=== PATIENT | male | born 1990 | race Caucasian/White ===

== ENCOUNTER 2017-02-07 18:34 | Emergency (ER) | payer OTHER ==
[~2017-02-07] VITALS: Ht 170.2 cm; Wt 65.0 kg
[2017-02-07 18:36] VITALS: BP 125/80
[2017-02-07 20:13] LABS: HIV 1&2 ANTIBODY SCREEN Nonreactive (Nonreactive); HIV-1 p24 ANTIGEN Nonreactive (Nonreactive)
[2017-02-08 13:36] LABS: HEP B SURF. AB 60.9 mIU/mL (0.0-10.0)
== END 2017-02-07 20:18 | disposition home or self-care (01) ==
LOC: ED 19:05
DX: S60.413A Abrasion of left middle finger, initial encounter (principal); W46.0XXA Contact with hypodermic needle, initial encounter; Y93.89 Activity, other specified; Y92.89 Other specified places as the place of occurrence of the external cause; Y99.8 Other external cause status
CPT/HCPCS: 36415; 84460; 86703; 86706; 86803; 87899; 99284; G0435

== ENCOUNTER → 2017-02-23 | Outpatient (CLI) | payer OTHER ==
[2017-02-23 17:56] LABS: HEMATOCRIT 41.6 % (39.2-51.8); HEMOGLOBIN 13.8 g/dL (13.7-18.0); WHITE BLOOD COUNT 7.9 x10^3/uL (3.4-10)
[2017-02-23 18:06] LABS: BLOOD UREA NITROGEN 10 mg/dL (7-18)
[2017-02-23 18:33] LABS: ASPARTATE AMINO TRANSFERASE 18 U/L (15-37); TOTAL IRON BINDING CAPACITY 273 mcg/dL (250-450)
== END | disposition home or self-care (01) ==
LOC: LAB 17:15
PROVIDERS: ATTEND Registered Nurse
DX: Z00.8 Encounter for other general examination (principal); R79.89 Other specified abnormal findings of blood chemistry
CPT/HCPCS: 36415; 80053; 80061; 80074; 82248; 82550; 82607; 83540; 83550; 84100; 84402; 84403; 84439; 84443; 85025; 86592; 86695; 86696; 87536

== ENCOUNTER → 2017-10-13 | Outpatient (CLI) | payer OTHER ==
[2017-10-13 12:49] LABS: BASOPHILS # (AUTO) 0.05 x10^3/uL (0-0.1); BASOPHILS % (AUTO) 1 % (0-1); EOSINOPHILS # (AUTO) 0.06 x10^3/uL (0-0.4); EOSINOPHILS % (AUTO) 1 % (1-7); LYMPHOCYTES # (AUTO) 2.53 x10^3/uL (1-3.4); LYMPHOCYTES % (AUTO) 44 % (22-44); MD NO; MEAN CORPUSCULAR HEMOGLOBIN 30.3 pg (27.5-34.5); MEAN CORPUSCULAR HGB CONC 33.3 g/dL (33.2-36.2); MEAN CORPUSCULAR VOLUME 91.1 fL (81-97); MONOCYTES # (AUTO) 0.55 x10^3/uL (0.2-0.8); MONOCYTES % (AUTO) 10 % (2-9); NEUTROPHILS # (AUTO) 2.58 x10^3/uL (1.8-6.8); NEUTROPHILS % (AUTO) 45 % (42-75); PLATELET COUNT 380 x10^3/uL (130-400); RED CELL DISTRIBUTION WIDTH 14.7 % (9.4-14.8)
[2017-10-13 12:58] LABS: ANION GAP 10 mmol/L (5-15); CHLORIDE 108 mmol/L (98-107); CHOLESTEROL, TOTAL 190 mg/dL (140-239)
[2017-10-13 13:27] LABS: % IRON SATURATION 22 % (20-55); ALANINE AMINOTRANSFERASE 39 U/L (12-78); ALKALINE PHOSPHATASE 71 U/L (45-117); BILIRUBIN,TOTAL 0.6 mg/dL (0.2-1.0); CREATININE 0.88 mg/dL (0.7-1.3); IRON LEVEL 61 mcg/dL (65-175); TOTAL IRON BINDING CAPACITY 282 mcg/dL (250-450); TOTAL PROTEIN 7.9 g/dL (6.4-8.2); TRANSFERRIN 221 mg/dL (200-360)
[2017-10-13 13:28] LABS: CHOL/HDL RATIO 3.4; HDL CHOL % 29 % (26-37); HDL CHOLESTEROL (DIRECT) 56 mg/dL (40-60); LDL CHOLESTEROL,CALCULATED 113 mg/dL (54-169); TRIGLYCERIDES 104 mg/dL (50-200); VLDL CHOLESTEROL 21 mg/dL (0-25)
== END | disposition home or self-care (01) ==
LOC: CFH 07:25
PROVIDERS: ATTEND Nurse Practitioner Primary Care
DX: Z12.11 Encounter for screening for malignant neoplasm of colon (principal); Z12.5 Encounter for screening for malignant neoplasm of prostate; Z13.220 Encounter for screening for lipoid disorders; I10 Essential (primary) hypertension; G25.81 Restless legs syndrome; E55.9 Vitamin D deficiency, unspecified; R53.83 Other fatigue; J30.9 Allergic rhinitis, unspecified; Z20.2 Contact with and (suspected) exposure to infections with a predominantly sexual mode of transmission
CPT/HCPCS: 80053; 80061; 80074; 82306; 82607; 82728; 83516; 83540; 83550; 83735; 84207; 84425; 84443; 84466; 85025; 86038; 86160; 86225; 86235; 86255; 86256; 86376; 86431; 86592; 86695; 86696; 87491; 87591

== ENCOUNTER 2018-04-26 21:41 | Emergency (ER) | payer SELFPAY ==
[~2018-04-26] VITALS: Ht 170.2 cm; Wt 65.6 kg
[2018-04-26 21:42] VITALS: BP 119/86
[2018-04-26] MEDS ORDERED: FAMOTIDINE 20 MG/2 ML ONE (22:37)
[2018-04-26] MEDS ORDERED: ONDANSETRON 2MG/ML, 2ML ONE (22:37)
[2018-04-26] MEDS ORDERED: SODIUM CHLORIDE 0.9% 1,000ML IVBOLUS ONE (23:00)
[2018-04-26] MEDS ORDERED: SODIUM CHLORIDE FLUSH 10ML SYR IVF ONE (23:00)
[2018-04-26] MEDS ORDERED: FAMOTIDINE 20 MG/2 ML IVP ONE (23:00)
[2018-04-26] MEDS ORDERED: ONDANSETRON 2MG/ML, 2ML IVPush ONE (23:00)
[2018-04-26 23:02] LABS: BASOPHILS # (AUTO) 0.01 x10^3/uL (0-0.1); BASOPHILS % (AUTO) 0 % (0-1); EOSINOPHILS % (AUTO) 0 % (1-7); LYMPHOCYTES # (AUTO) 0.47 x10^3/uL (1-3.4); LYMPHOCYTES % (AUTO) 4 % (22-44); MD NO; MEAN CORPUSCULAR HEMOGLOBIN 30.4 pg (27.5-34.5); MEAN CORPUSCULAR HGB CONC 34.1 g/dL (33.2-36.2); MEAN CORPUSCULAR VOLUME 89.3 fL (81-97); MEAN PLATELET VOLUME 7.7 fL (7.4-10.4); MONOCYTES # (AUTO) 0.65 x10^3/uL (0.2-0.8); MONOCYTES % (AUTO) 5 % (2-9); NEUTROPHILS # (AUTO) 12.48 x10^3/uL (1.8-6.8); NEUTROPHILS % (AUTO) 92 % (42-75); PLATELET COUNT 407 x10^3/uL (130-400); RED BLOOD COUNT 5.58 x10^6/uL (4.38-5.82); RED CELL DISTRIBUTION WIDTH 13.5 % (9.4-14.8)
[2018-04-26 23:06] LABS: ALANINE AMINOTRANSFERASE 44 U/L (12-78); ALBUMIN 4.6 g/dL (3.4-5.0); ANION GAP 14 mmol/L (5-15); CHLORIDE 105 mmol/L (98-107); CREATININE 1.44 mg/dL (0.7-1.3)
[2018-04-26 23:08] LABS: ALKALINE PHOSPHATASE 90 U/L (45-117); TOTAL PROTEIN 9.7 g/dL (6.4-8.2)
[2018-04-26] MEDS ORDERED: MAALOX/HYOSCYAMINE/LIDOCAINE 45 ML BTL PO ONE (23:30)
[2018-04-26] MEDS ORDERED: MAALOX/HYOSCYAMINE/LIDOCAINE 45 ML BTL ONE (23:41)
== END 2018-04-27 00:16 | disposition home or self-care (01) ==
LOC: ED 22:29
DX: R11.2 Nausea with vomiting, unspecified (principal); R10.13 Epigastric pain; R19.7 Diarrhea, unspecified
CPT/HCPCS: 36415; 80053; 83690; 85025; 93005; 96361; 96374; 96375; 99285; J2405; J7030; S0028